=== PATIENT | female | born 1965 | race Caucasian/White ===

== ENCOUNTER → 2023-10-26 06:18 | Day surgery (SDC) | payer BC, SELFPAY | LOC: GI 06:18 | PROVIDERS: ATTENDING PHYSICIAN Internal Medicine | DX: Z12.11 Encounter for screening for malignant neoplasm of colon (principal); Z86.010 Personal history of colon polyps; K64.8 Other hemorrhoids; K57.30 Diverticulosis of large intestine without perforation or abscess without bleeding | CPT/HCPCS: G0105 ==

== ENCOUNTER → 2024-06-02 15:45 | Outpatient (REF) | payer BC, SELFPAY | LOC: HWWDC 15:45 | PROVIDERS: ATTENDING PHYSICIAN Family Medicine | DX: Z12.31 Encounter for screening mammogram for malignant neoplasm of breast (principal) | CPT/HCPCS: 77063; 77067 ==